=== PATIENT | male | born 1965 ===

== ENCOUNTER → 2024-03-11 10:11 | Outpatient (REF) | payer BC, SELFPAY ==
[2024-03-11 10:59] LABS: % Basophils 1.1 % (0-2); % Eosinophils 6.9 % (0-6); % Immature Granulocytes 0.3 % (0-0.5); % Lymphocytes 26.7 % (20.5-51.1); % Monocytes 11.4 % (1.7-9.3); % Neutrophils 53.6 % (42.2-75.2); Absolute Basophils 0.1 10^3/uL (0-0.2); Absolute Eosinophils 0.5 10^3/uL (0-0.7); Absolute Monocytes 0.9 10^3/uL (0.1-0.6); Hematocrit 41.1 % (39.0-52.0); Hemoglobin 14.1 g/dL (13.0-18.0); Mean Corp Hgb Conc. 34.3 g/dL (33.0-37.0); Mean Corpuscular Volume 87.4 fL (80.0-94.0); Mean Platelet Volume 11.3 fL (7.4-10.4); Nucleated Red Blood Cells % 0 % (-); Platelet Count 154 10^3/uL (130-400); Red Cell Dist. Width 13.6 % (11.5-14.5); White Blood Cell Count 7.5 10^3/uL (4.8-10.8)
[2024-03-11 11:29] LABS: ALT (SGPT) 59 U/L (0-50); AST (SGOT) 40 U/L (17-59); Albumin 3.8 g/dl (3.5-5.0); Alkaline Phosphatase 106 U/L (38-126); Blood Urea Nitrogen 17 mg/dl (9-20); Calcium 9.1 mg/dl (8.4-10.2); Carbon Dioxide 25 mmol/L (22-30); Chloride 104 mmol/L (98-107); Glucose 94 mg/dl (70-99); HDL Cholesterol 41 mg/dl; LDL Cholesterol, Calculated 107 mg/dl; Potassium 4.9 mmol/L (3.5-5.1); Sodium 136 mmol/L (135-145); Total Bilirubin 0.5 mg/dl (0.2-1.3); Total Cholesterol 168 mg/dl (50-199); Total Protein 6.5 g/dl (6.3-8.2); Triglyceride 102 mg/dl (10-149); Very Low Density Lipoprotein 20 mg/dl (0-30); eGFR > 60.00
[2024-03-11 11:49] LABS: PSA, Total - Screen 0.97 ng/ml (0.0-4.0); TSH Reflex To Free T4 1.07 uIU/ml (0.47-4.68)
== END ==
LOC: REG 10:11
PROVIDERS: ATTENDING PHYSICIAN Student in an Organized Health Care Education/Training Program
DX: I10 Essential (primary) hypertension (principal); Z13.220 Encounter for screening for lipoid disorders; Z12.5 Encounter for screening for malignant neoplasm of prostate
CPT/HCPCS: 36415; 80053; 80061; 84443; 85025; G0103

== ENCOUNTER → 2024-10-31 08:23 | Outpatient (REF) | payer BC, SELFPAY ==
[2024-10-31 10:50] LABS: ALT (SGPT) 64 U/L (0-50); AST (SGOT) 42 U/L (17-59); Alkaline Phosphatase 106 U/L (38-126); Blood Urea Nitrogen 16 mg/dl (9-20); Calcium 8.7 mg/dl (8.4-10.2); Carbon Dioxide 27 mmol/L (22-30); Chloride 101 mmol/L (98-107); Glucose 119 mg/dl (70-99); HDL Cholesterol 37 mg/dl; LDL Cholesterol, Calculated 86 mg/dl; Potassium 4.5 mmol/L (3.5-5.1); Sodium 135 mmol/L (135-145); Total Bilirubin 0.6 mg/dl (0.2-1.3); Total Cholesterol 148 mg/dl (50-199); Total Protein 6.5 g/dl (6.3-8.2); Triglyceride 125 mg/dl (10-149); Very Low Density Lipoprotein 25 mg/dl (0-30); eGFR > 60.00
== END ==
LOC: REG 08:23
PROVIDERS: ATTENDING PHYSICIAN Student in an Organized Health Care Education/Training Program
DX: E78.2 Mixed hyperlipidemia (principal); Z00.01 Encounter for general adult medical examination with abnormal findings; I10 Essential (primary) hypertension; R74.8 Abnormal levels of other serum enzymes; E66.9 Obesity, unspecified; Z72.0 Tobacco use
CPT/HCPCS: 36415; 80053; 80061